=== PATIENT | male | born 1985 | race Hispanic/Latino ===

== ENCOUNTER 2017-09-05 11:11 | Emergency (ER) | payer SELFPAY ==
[~2017-09-05] VITALS: Ht 180.3 cm; Wt 66.4 kg
[~2017-09-05 11:11] MED LIST: FLEXERIL10 MG PO; NAPROSYN500 MG PO; NORCO 5/3251 TABLET PO
[2017-09-05 11:53] LABS: HEMATOCRIT 42.6 % (38.0-50.0); HEMOGLOBIN 14.2 G/DL (12.5-16.6); MCH 27.5 PG (29.0-34.0); MCHC 33.3 G/DL (30.0-36.0); MCV 82.6 FL (86-99); PLATELET COUNT 219 K/uL (156-360); RBC DIS.WIDTH-CV 14.8 % (11.8-14.6); RBC DIS.WIDTH-SD 44.9 % (39-53); RED BLOOD COUNT 5.16 M/uL (4.00-5.50); WHITE BLOOD COUNT 10.7 K/uL (4.1-10.2)
[2017-09-05 12:04] LABS: ALBUMIN 4.3 g/dL (3.2-4.8); CHLORIDE 105 mEq/L (99-109); POTASSIUM 4.6 mEq/L (3.7-5.4); SODIUM 139 mEq/L (136-147)
[2017-09-05 12:06] LABS: GLUCOSE 88 mg/dL (70-99); TOTAL PROTEIN 7.3 g/dL (6.4-8.3)
[2017-09-05 12:08] LABS: TOTAL BILIRUBIN 0.6 mg/dL (0.0-1.0)
[2017-09-05 12:10] LABS: ALKALINE PHOSPHATASE 93 IU/L (3-129); CREATININE 0.9 mg/dL (0.6-1.3); GFR ESTIMATE (CALCULATED) > 59 mL/min/ (58.99-99999)
[2017-09-05 12:11] LABS: UREA NITROGEN (BUN) 10 mg/dL (9-23)
[2017-09-05 12:12] LABS: AST (GOT) 15 IU/L (2-34)
[2017-09-05 12:13] LABS: ALT (GPT) 10 IU/L (3-49); LIPASE 13 U/L (1.0-51.0)
[2017-09-05 13:18] LABS: APPEARANCE CLOUDY ((CLEAR)); BILIRUBIN NEGATIVE; BLOOD LARGE; COLOR AMBER ((YELLOW)); GLUCOSE (STRIP) NEGATIVE; KETONES NEGATIVE; LEUKOCYTES TRACE; NITRITE NEGATIVE; PROTEIN (STRIP) 100; SPECIFIC GRAVITY 1.024 (1.000-1.030)
[2017-09-05 13:34] LABS: RED BLOOD CELLS TNTC /HPF (0-5); UCUL ADDED? YES
[2017-09-05] MEDS ORDERED: MOTRIN600 MG PO (14:00)
[2017-09-05] MEDS ORDERED: FLOMAX0.4 MG PO (14:00)
[2017-09-05] MEDS ORDERED: ZOFRAN4 MG PO (14:00)
[2017-09-05] MEDS ORDERED: PERCOCET 5/31 TABLET PO (14:00)
[2017-09-05 14:15] VITALS: BP 111/58
== END 2017-09-05 14:15 | disposition home or self-care (01) ==
LOC: EME 11:11
DX: N20.0 Calculus of kidney (principal); Z87.442 Personal history of urinary calculi; F17.200 Nicotine dependence, unspecified, uncomplicated
CPT/HCPCS: 74176; 80053; 81003; 83690; 85027; 87086; 99281; 99284

== ENCOUNTER 2017-09-26 19:15 | Emergency (ER) | payer SELFPAY ==
[~2017-09-26] VITALS: Ht 180.3 cm; Wt 64.9 kg
[~2017-09-26 19:15] MED LIST changes: +FLOMAX0.4 MG PO; +MOTRIN600 MG PO; +PERCOCET 5/31 TABLET PO; +ZOFRAN4 MG PO
[2017-09-26 20:20] LABS: HEMATOCRIT 39.7 % (38.0-50.0); HEMOGLOBIN 13.3 G/DL (12.5-16.6); MCH 27.9 PG (29.0-34.0); MCHC 33.5 G/DL (30.0-36.0); MCV 83.2 FL (86-99); RBC DIS.WIDTH-CV 14.4 % (11.8-14.6); RBC DIS.WIDTH-SD 43.8 % (39-53); RED BLOOD COUNT 4.77 M/uL (4.00-5.50); WHITE BLOOD COUNT 16.2 K/uL (4.1-10.2)
[2017-09-26 20:28] LABS: APPEARANCE SL.HAZY ((CLEAR)); BILIRUBIN NEGATIVE; BLOOD MODERATE; COLOR YELLOW ((YELLOW)); GLUCOSE (STRIP) NEGATIVE; KETONES 5; LEUKOCYTES TRACE; NITRITE NEGATIVE; PROTEIN (STRIP) 30
[2017-09-26 20:40] LABS: CHLORIDE 104 mEq/L (99-109); SODIUM 139 mEq/L (136-147)
[2017-09-26 20:41] LABS: GLUCOSE 87 mg/dL (70-99)
[2017-09-26 20:45] LABS: GFR ESTIMATE (CALCULATED) > 59 mL/min/ (58.99-99999)
[2017-09-26 20:46] LABS: UREA NITROGEN (BUN) 10 mg/dL (9-23)
[2017-09-26 20:54] LABS: BACTERIA NONE SEEN /HPF; CALCIUM OXALATE CRYSTALS 3+ /HPF; EPITHELIAL CELLS NONE SEEN /HPF; MUCUS 2+ /LPF; RED BLOOD CELLS TNTC /HPF (0-5); UCUL ADDED? YES
[2017-09-26 20:58] LABS: PLATELET COUNT 292 K/uL (156-360)
[2017-09-26] MEDS ORDERED: FLOMAX0.4 MG PO (23:36)
[2017-09-26] MEDS ORDERED: ZOFRAN ODT4 MG PO (23:36)
[2017-09-26] MEDS ORDERED: PERCOCET 5/31 TABLET PO (23:36)
[2017-09-26 23:46] VITALS: BP 124/89
== END 2017-09-26 23:47 | disposition home or self-care (01) ==
LOC: EME 19:15
DX: N20.0 Calculus of kidney (principal); Z87.442 Personal history of urinary calculi; F17.200 Nicotine dependence, unspecified, uncomplicated
CPT/HCPCS: 74176; 80048; 81003; 85027; 87086; 99281; 99284; J1885